=== PATIENT | female | born 2000 | race Hispanic/Latino ===

== ENCOUNTER 2019-06-19 08:33 | Emergency (ER) | payer SELFPAY ==
[2019-06-19] MEDS ORDERED: Acetaminophen 500 MG TAB ONE (09:42)
[2019-06-19 09:50] LABS: Pregnancy Test - Urine (BHCG) Negative (Negative); Pregu Control Background? CLEAR/WHITE (CLR/WHITE); Pregu Control Bar Appear? YES (CONTROL BAR); Specific Gravity 1.023 (1.002-1.036)
== END 2019-06-19 10:06 | disposition home or self-care (01) ==
LOC: ERS 08:33
DX: B34.9 Viral infection, unspecified (principal)
CPT/HCPCS: 81025; 87804; 99283